=== PATIENT | male | born 1960 | race Caucasian/White ===

== ENCOUNTER 2023-07-15 07:14 | Observation (INO) ==
[~2023-07-15 07:14] MED LIST: Buffered Lidocaine 1% SYRIN 1 ml INTRADERM ONE; Lactated Ringers 1000 ml BAG 1,000 ML IV SCH; Naloxone 0.4 mg VIAL 0.4 mg/ml 1 ml VIAL IV PRN; Ondansetron 4 mg VIAL 2 MG/ML 2 ml VIAL IV PRN
[2023-07-15] MEDS ORDERED: ceFAZolin 2 GM PREMIX 2 GM/50 ML BAG ONE (08:07)
[2023-07-15 08:23] LABS: Rapid COVID-19 Molecular Undetected (Undetected)
[2023-07-15] MEDS ORDERED: Midazolam 2 mg/2 ml VIAL 1 mg/ml 2 ml VIAL (2 mg) ONE (08:30)
[2023-07-15] MEDS ORDERED: Dexamethasone IV 4 MG/ML VIAL 1 ml VIAL ONE ×2 (08:30→09:27)
[2023-07-15] MEDS ORDERED: ROPIVACAINE 5 MG/ML 30 ML BTL (0.5%) ONE (08:30)
[2023-07-15] MEDS ORDERED: Glycopyrrolate IV 0.2 MG/ML 1 ML VIAL ONE (09:27)
[2023-07-15] MEDS ORDERED: Ondansetron 4 mg VIAL 2 MG/ML 2 ml VIAL ONE (09:27)
[2023-07-15] MEDS ORDERED: Propofol 10 MG/ML 20 ML BTL ONE (09:27)
[2023-07-15] MEDS ORDERED: Rocuronium 50 mg VIAL 10 mg/ml 5 ml VIAL (50 mg) ONE (09:28)
[2023-07-15] MEDS ORDERED: Lidocaine 2% PF 5 ML VIAL ONE (09:29)
[2023-07-15] MEDS ORDERED: Vancomycin 1,000 MG VIAL ONE (09:30)
[2023-07-15] MEDS ORDERED: Tranexamic Acid 1 GM/100ML BAG 0 MG/0 ML BAG IV ONE (09:53)
[2023-07-15] MEDS ORDERED: Phenylephrine 40 mcg/mL 10mL (400mcg) SYRINGE ONE (11:01)
[2023-07-15] MEDS ORDERED: fentaNYL 100 mcg/2 ml 50 MCG/ML VIAL ONE ×2 (11:45→15:30)
[2023-07-15] MEDS ORDERED: Ondansetron ODT 4 mg TAB 4 MG TAB PO PRN ×2 (14:52→18:02)
[2023-07-15] MEDS ORDERED: Ondansetron 4 mg VIAL 2 MG/ML 2 ml VIAL IV PRN ×3 (14:52→18:02)
[2023-07-15] MEDS ORDERED: Magnesium Hydroxide LIQ 30 ML UDC PO PRN ×2 (14:52→18:02)
[2023-07-15] MEDS ORDERED: Lactulose 30 ml UDC PO PRN ×2 (14:52→18:02)
[2023-07-15] MEDS ORDERED: Morphine 2 MG/ML SYRINGE IV PRN ×2 (14:52→18:02)
[2023-07-15] MEDS ORDERED: ceFAZolin 1 GM ADVAN 1 GM in NS 0.9% 50 ML 50 ML IVPB SCH ×2 (15:00→19:00)
[2023-07-15] MEDS: fentaNYL 100 mcg/2 ml 50 MCG/ML VIAL IV PRN ×3 (15:39→16:44)
[2023-07-15] MEDS ORDERED: Naloxone 0.4 mg VIAL 0.4 mg/ml 1 ml VIAL IV PRN (18:04)
[2023-07-15] MEDS ORDERED: Lactated Ringers 1000 ml BAG 1,000 ML IV SCH (21:00)
[2023-07-15] MEDS ORDERED: Magnesium Hydroxide LIQ 30 ML UDC PO SCH (21:00)
[2023-07-15] MEDS: ceFAZolin 1 GM ADVAN 1 GM in NS 0.9% 50 ML 50 ML IVPB SCH (21:37)
[2023-07-15] MEDS: Magnesium Hydroxide LIQ 30 ML UDC PO SCH (22:30)
[2023-07-16] MEDS: ceFAZolin 1 GM ADVAN 1 GM in NS 0.9% 50 ML 50 ML IVPB SCH ×2 (06:01→12:14)
[2023-07-16 06:18] VITALS: BP 128/77
[2023-07-16] MEDS: Magnesium Hydroxide LIQ 30 ML UDC PO SCH (08:06)
[2023-07-16] MEDS ORDERED: Vitamin THERAPEUTIC TAB PO SCH ×2 (09:00)
[2023-07-16 09:11] LABS: Hematocrit 35.1 % (38-53); Hemoglobin 12.4 g/dL (13.2-16.3); Platelet Count 205 10^3/uL (150-450)
[2023-07-16 09:35] LABS: Calcium 8.5 mg/dL (8.6-10.3); Creatinine, Serum 0.81 mg/dL (0.67-1.17); Potassium 3.9 mmol/L (3.5-5.0); eGFR CKD-EPI 99.7 (>60)
== END 2023-07-16 12:50 | disposition home or self-care (01) ==
LOC: OR 07:14 → SSU 07:14 → OR 18:01
PROVIDERS: ADMIT Orthopaedic Surgery; ATTEND Orthopaedic Surgery